=== PATIENT | female | born 1960 | race Caucasian/White ===

== ENCOUNTER → 2018-03-03 07:31 | Outpatient (CLI) | payer OTHER, SELFPAY ==
--- NOTE | 2018-03-03 | DI.MRI.S_ITS ---
PROCEDURE: MR HEAD/BRAIN WO/W CON INDICATIONS: HEADACHES SMELL DISTURBANCE TECHNIQUE: Noncontrast axial T1 spin echo, axial T2 fast spin echo, sagittal and axial FLAIR, coronal T2 fast spin echo, axial gradient echo, axial diffusion and ADC through the brain. After the administration of contrast, axial and coronal 3D VIBE or T1 spin echo with fat saturation through the brain. COMPARISON: [facility], CT, HEAD WITHOUT CONTRAST, 04/28/2012, 20:03. FINDINGS: Image quality: Excellent. CSF Spaces: Basal cisterns are patent. No extra-axial fluid collections. Ventricles are normal in size and shape. Brain: No midline shift. No intracranial bleeds or masses. No abnormal intracranial enhancement. The brainstem appears normal. Diffusion-weighted images demonstrate no acute ischemic insults. No chronic ischemic insults. Normal intravascular flow voids are present. Skull and face: Calvarial marrow is normal in signal. Orbits appear normal. Sinuses: Sinuses and mastoids appear clear. IMPRESSION: Study within normal limits, without findings of masses or abnormal enhancement. Dictated by: Blair Yen M.D. on 03/03/2018 at 10:02 Approved by: Blair Yen M.D. on 03/03/2018 at 10:04
== END ==
PROVIDERS: PCP Nurse Practitioner Family; Visit Provider Family Medicine
DX: R51 Headache (principal); R43.9 Unspecified disturbances of smell and taste
CPT/HCPCS: 70553

== ENCOUNTER → 2021-02-24 10:14 | Outpatient (ROUT) | payer OTHER, SELFPAY ==
[2021-02-24 10:20] LABS: Add Manual Diff / Slide Review NO; Basophils Absolute Auto 0 /uL (0-100); Basophils Percent Auto 0.4 % (0-2); Eosinophils Absolute Auto 200 /uL (0-450); Eosinophils Percent Auto 2.4 % (2-4); Hematocrit 44.5 % (36-46); Lymphocytes Absolute Auto 2400 /uL (1100-4500); Lymphocytes Percent Auto 34.4 % (25-40); Mean Corpuscular HGB Conc 33.7 % (30-36); Mean Corpuscular Hemoglobin 29.1 PG (26-34); Mean Corpuscular Volume 86.2 fL (80-100); Monocytes Absolute Auto 600 /uL (0-900); Neutrophils Absolute Auto 3800 /uL (1500-7000); Neutrophils Percent Auto 53.8 % (50-75); Platelet Count 245 X10^3/uL (150-400); Red Blood Cell Count 5.16 X10^6/uL (4.0-5.2); White Blood Cell Count 7.1 X10^3/uL (4.5-11.0)
[2021-02-24 10:31] LABS: Alanine Aminotransferase 96 IU/L (<35); Albumin 3.9 g/dL (3.5-5.0); Albumin Globulin Ratio 1.4 (1.0-2.8); Alkaline Phosphatase 104 U/L (38-126); Amylase 39 U/L (30-110); Aspartate Aminotransferase 73 IU/L (14-36); BUN Creatinine Ratio 25.9 (6-22); Bilirubin Total 0.6 mg/dL (0.2-1.3); Blood Urea Nitrogen 14 mg/dL (7-17); Calcium 9.3 mg/dL (8.4-10.2); Carbon Dioxide 27 mmol/L (22-32); Chloride 104 mmol/L (98-107); Estimated Glomerular Filt Rate > 60.0 mL/min (>60); Globulin 2.8 g/dL (1.7-4.1); Glucose 102 mg/dL (80-110); HEMOLYSIS 25 (0-50); Lipase 54 U/L (23-300); Potassium 3.8 mmol/L (3.4-5.1); Sodium 138 mmol/L (137-145); Total Protein 6.7 g/dL (6.3-8.2)
== END ==
PROVIDERS: PCP Nurse Practitioner Family; Visit Provider Physical Therapist
DX: R10.11 Right upper quadrant pain (principal)
CPT/HCPCS: 80053; 82150; 83690; 85025

== ENCOUNTER → 2021-03-02 09:36 | Outpatient (CLI) | payer OTHER, SELFPAY ==
--- NOTE | 2021-03-02 | DI.US.S_ITS ---
PROCEDURE: US ABDOMEN COMPLETE INDICATIONS: right upper quadrant pain TECHNIQUE: Real-time scanning was performed of the abdominal and retroperitoneal organs, with image documentation. COMPARISON: [facility], CT, CT KUB, 02/24/2019, 19:08. FINDINGS: Liver: The liver demonstrates normal size. The liver demonstrates generalized moderately increased echogenicity. This decreases ultrasound sensitivity for detection of hepatic masses. Gallbladder: No findings of gallstones or sludge are seen. The gallbladder wall is not thickened, measuring 3 mm or less. No specific pericholecystic fluid is seen. The sonographic Hood sign is negative. Biliary ducts: Not seen. Pancreas: Not well seen. Spleen: Spleen is normal in size and homogeneous in echotexture. The spleen measures 9.5 cm in length. Kidneys: Kidneys are normal in size and echotexture. Right kidney measures 12.2 cm long; left kidney measures 12.2 cm long. No hydronephrosis or nephrolithiasis. No solid masses. Aorta: Visualized aorta is normal in caliber at less than 3 cm. Iliacs: Proximal common iliac arteries are normal in caliber at less than 2.5 cm. IVC: Intrahepatic inferior vena cava is patent. Miscellaneous: No free abdominal fluid. IMPRESSION: The gallbladder demonstrates a normal sonographic appearance. No biliary dilatation is seen. No free fluid is seen on this limited ultrasound. If there is clinical suspicion for an intra-abdominal injury, please consider a dedicated CT scan of the abdomen and pelvis for further evaluation. Dictated by: Blair Yen M.D. on 03/02/2021 at 11:06 Approved by: Blair Yen M.D. on 03/02/2021 at 11:09
== END ==
PROVIDERS: Referring Provider Nurse Practitioner Family; Visit Provider Nurse Practitioner Family
DX: R10.11 Right upper quadrant pain (principal)
CPT/HCPCS: 76700

== ENCOUNTER → 2023-07-11 18:16 | Outpatient (ROUT) | payer OTHER, SELFPAY ==
[2023-07-11 19:00] LABS: Influenza A - CEPHEID Flu A NEGATIVE (NEGATIVE); Influenza B - CEPHEID Flu B NEGATIVE (NEGATIVE); Respiratory Syncytial Virus Negative (Negative)
[2023-07-11 19:10] LABS: COVID-19 CEPHEID 4-PLEX PCR Negative (Negative)
== END ==
PROVIDERS: Visit Provider Family Medicine
DX: R50.9 Fever, unspecified (principal); R53.83 Other fatigue
CPT/HCPCS: 0241U

== ENCOUNTER → 2023-08-09 15:45 | Outpatient (ROUT) | payer OTHER, SELFPAY ==
[2023-08-09 16:25] LABS: Influenza A - CEPHEID Flu A NEGATIVE (NEGATIVE); Influenza B - CEPHEID Flu B NEGATIVE (NEGATIVE); Respiratory Syncytial Virus POSITIVE (Negative)
[2023-08-09 16:53] LABS: COVID-19 CEPHEID 4-PLEX PCR Negative (Negative)
== END ==
PROVIDERS: Visit Provider Family Medicine
DX: Z11.59 Encounter for screening for other viral diseases (principal)
CPT/HCPCS: 0241U

== ENCOUNTER → 2023-08-16 08:21 | Outpatient (CLI) | payer OTHER, SELFPAY ==
--- NOTE | 2023-08-16 | DI.US.S_ITS ---
PROCEDURE: US PERIPH VENOUS LOW EXTREM LT INDICATIONS: CELLULITIS OF LEFT LOWER LEG TECHNIQUE: Real-time imaging, as well as color and pulse Doppler interrogation, were performed of the lower extremity deep veins from the inguinal ligament to the popliteal fossa, with documentation of the visualized calf veins. COMPARISON: None. FINDINGS: The common femoral, femoral, popliteal, and the visualized calf veins are normally compressible, and free of intraluminal thrombus. Color and pulse Doppler demonstrate normal phasic intraluminal flow. There is normal augmentation response to distal compression maneuver. IMPRESSION: No findings of left lower extremity deep venous thrombosis. Dictated by: Masood Apodaca M.D. on 08/16/2023 at 13:59 Approved by: Masood Apodaca M.D. on 08/16/2023 at 14:02
== END ==
PROVIDERS: Referring Provider Family Medicine; Visit Provider Family Medicine
DX: L03.116 Cellulitis of left lower limb (principal)
CPT/HCPCS: 93971

== ENCOUNTER 2025-06-14 18:29 | Emergency (ER) | payer OTHER, MEDICARE, SELFPAY ==
[2025-06-14 18:31] VITALS: BP 143/72; PULSE 71; RESP 18; O2SAT 98; BMI 32.0
--- NOTE | 2025-06-14 18:40 | DI.RAD.S_ITS ---
PROCEDURE: XR TIBIA FIBULA LT 2V INDICATIONS: pain TECHNIQUE: 2 views of the tibia and fibula were acquired. COMPARISON: None. FINDINGS AND IMPRESSION: No displaced fracture or dislocation identified. Partially seen knee and ankle degenerative changes and calcaneal enthesopathy. Small dystrophic calcifications are seen in the calf soft tissues. If there is high concern for further derangement, consider MRI evaluation. Dictated by: Harish Wells M.D. on 06/14/2025 at 19:58 Approved by: Harish Wells M.D. on 06/14/2025 at 19:59
--- NOTE | 2025-06-14 18:45 | DI.US.S_ITS ---
PROCEDURE: US PERIPH VENOUS LOW EXTREM LT INDICATIONS: pt reports thinks blod clot, pain behind calf hx: x6 clots TECHNIQUE: Real-time imaging, as well as color and pulse Doppler interrogation, were performed of the lower extremity deep veins from the inguinal ligament to the popliteal fossa, with documentation of the visualized calf veins. COMPARISON: None. FINDINGS: The common femoral, femoral, popliteal, and the visualized calf veins are normally compressible, and free of intraluminal thrombus. Color and pulse Doppler demonstrate normal phasic intraluminal flow. There is normal augmentation response to distal compression maneuver. IMPRESSION: No findings of lower extremity deep venous thrombosis. Dictated by: Deangelo Sim M.D. on 06/14/2025 at 20:05 Approved by: Deangelo Sim M.D. on 06/14/2025 at 20:06
--- NOTE | 2025-06-14 20:22 | ED_ITS ---
HPI - Extremity Injury (Lower) General Chief Complaint: Extremity Injury, Lower Stated Complaint: possible DVT left leg Time Seen by Provider: 06/14/25 20:22 Source: patient Mode of arrival: Ambulatory History of Present Illness HPI Narrative: Patient is a 65-year-old female states history of blood clots in the past but not on any blood thinners currently. Comes into the ED from home for evaluation of left leg swelling pain, states that she is worried she might have a blood clot in this leg. States that she fell yesterday on her deck and hit it, also states that she is having some pain behind her knee/thigh. She is able to bear weight otherwise no other complaints at this time. She states that she was never started on a blood thinner due to the fact that she had a discussion with her primary care doctor and it was decided that she should not be on it however she states that she does take prophylaxis Lovenox whenever she is on prolonged trips Related Data Previous Rx's ?Medication ?Instructions ?Recorded clobetasol-emollient 0.05 % 0 topical SEE INSTRUCTIONS ##30 09/05/17 topical cream Allergies Allergy/AdvReac Type Severity Reaction Status Date / Time aspirin AdvReac Vomiting Verified 06/14/25 18:33 Review of Systems Review of Systems Narrative: General: Denies fever, chills, weight loss HEENT: Denies headache, eye drainage, eye irritation, head trauma, sore throat, voice change Cardiovascular: Denies any chest pain, palpitations, tachycardia Respiratory: Denies any shortness of breath, cough, wheeze, stridor GI/: Denies any abdominal pain, nausea, vomiting, diarrhea, bright red blood per rectum, melanotic stools, urinary frequency, urinary retention, dysuria, hematuria MSK: Positive left leg swelling pain Skin: Denies any rashes, lesions, discoloration Neuro: Denies any headache, lightheadedness, dizziness, fainting, weakness Psych: Denies SI/HI Exam Narrative Exam Narrative: General: Cooperative, well-developed, not in acute distress HEENT: Normocephalic, atraumatic, PERRLA, normal sclera, eyelids normal Neck: Active full range of motion, atraumatic Chest: Normal to inspection, negative crepitus, no overlying erythema ecchymosis Respiratory: Normal respiratory effort, not in acute respiratory distress, clear to auscultation bilaterally negative cough, wheeze, tachypnea, rhonchi, rales Cardiology: Regular rate rhythm negative gallop, murmur, rubs GI/: No tenderness to palpation, soft, non rigid, normal to inspection, exam deferred MSK: Full active range of motion in all 4 extremities, patient with ecchymosis noted to the anterior left lower leg, otherwise neurovascularly intact able to stand bear weight and ambulate unassisted. Skin: No rashes or lesions noted Neuro: Alert awake oriented x3, moves all 4 extremities spontaneously, cranial nerves intact, able to answer all questions appropriately follows commands appropriately Psych: Cooperative, negative suicidal or homicidal ideations Initial Vital Signs Initial Vital Signs: Vital Signs Pulse Rate 71 06/14/25 18:31 Respiratory Rate 18 06/14/25 18:31 Blood Pressure 143/72 H 06/14/25 18:31 Pulse Oximetry 98 06/14/25 18:31 Oxygen Delivery Method Room Air 06/14/25 18:31 Course Orders Ordered: ED Orders 06/14/25 18:40 XR tibia fibula LT 2V Stat 06/14/25 18:45 US periph venous low extrem lt Stat Vital Signs Vital signs: Vital Signs - 8 hr 06/14/25 18:31 Pulse Rate 71 Respiratory Rate 18 Blood Pressure 143/72 H Pulse Oximetry 98 Oxygen Delivery Method Room Air MDM - Extremity Injury (Lower) MDM Narrative Medical decision making narrative: 65-year-old female with a past medical history of DVTs not on any blood thinners at baseline comes into the ED from home for evaluation of bruising pain to the left leg, she states that she fell yesterday bumped it on the edge of the deck and is now having some bruising pain concern for blood clot. On exam she has ecchymosis noted to the anterior lower leg but otherwise neurovascularly intact, compartments soft, she is able to stand bear weight ambulate unassisted here in the emergency department. Ultrasound without any findings of DVT, x-ray without any traumatic injury. Patient was instructed to follow up with the primary care doctor for possible repeat ultrasound in about a week or 2 to make sure patient does not develop DVT given history of. She verbalized understanding of this and agrees to being discharged home with outpatient follow up Discharge Plan Departure Patient Disposition: Home Clinical Impression: Contusion of left leg Instructions: DI for Contusion Activity Restrictions/Additional Instructions: Please follow up with your primary care doctor for possible repeat ultrasound in a week or 2 Please use ice for the next few days to help with your aches and pains Please read the discharge instructions sheet carefully and bring all papers to all doctor follow-up visits, as it may contain information that your doctor may want to see. Disease processes change and evolve, if your symptoms worsen or if you develop any new symptoms that are concerning to you please return for evaluation. Your evaluation today does not show any evidence of any life- threatening/serious illnesses requiring admission to the hospital or surgery. Please follow-up with your doctor for re-evaluation in approximately 1 day. Seek immediate medical attention for any worrisome symptoms. *If you do not have a primary care provider please contact the [facility] Resource line at [phone]. They will ask some questions about your medical history and help get you set up with a doctor in the community. Prescriptions: No Action clobetasol-emollient 0.05 % cream 0 Topical SEE INSTRUCTIONS Qty: 30 1RF Stand Alone Forms: Patient Portal/API
[2025-06-14 20:32] VITALS: BP 135/72; PULSE 80; RESP 16; O2SAT 98
== END 2025-06-14 20:35 | disposition home or self-care (01) ==
PROVIDERS: Emergency Provider Student in an Organized Health Care Education/Training Program
DX: S80.12XA Contusion of left lower leg, initial encounter (principal); R60.0 Localized edema
CPT/HCPCS: 73590; 93971; 99281; 99283